=== PATIENT | female | born 1970 | race Asian ===

== ENCOUNTER 2023-12-15 07:00 | Outpatient (CLI) | payer OTHER ==
--- NOTE | 2023-12-15 14:10 | XRAY Report ---
PROCEDURE: Thoracic Spine 2V INDICATIONS: LEFT FOOT PAIN/THORACIC AND LOW BACK PAIN TECHNIQUE: 2 views of the thoracic spine were acquired. COMPARISON: None. FINDINGS: Bones: No fractures or dislocations. No suspicious bony lesions. Mild degenerative disc disease at T2-T3, T3-T4, T4-T5, T5-T6, T6-T7 and T7-T8. 12 pairs of ribs are noted with rudimentary ribs at T12, and appear intact where visualized. Soft tissues: No paravertebral stripe thickening. IMPRESSION: 1. No acute bony abnormality. 2. . Mild degenerative disc disease. Reviewed by: Hernandez Daniel MD on 12/15/2023 2:08 PM PDT Approved by: Hernandez Daniel MD on 12/15/2023 2:08 PM PDT Station ID: [id number]
--- NOTE | 2023-12-15 14:21 | XRAY Report ---
PROCEDURE: Lumbar Spine 2-3V INDICATIONS: LEFT FOOT PAIN/THORACIC AND LOW BACK PAIN TECHNIQUE: 3 views of the lumbar spine were acquired. COMPARISON: None. FINDINGS: Bones: 4 [id number] vertebrae are present. L5 is sacralized. There is normal bony alignment. No vertebral body compression fractures. No suspicious bony lesions. Mild degenerative disc disease throughout the lumbar spine. Moderate facet arthropathy in the lumbar spine. Soft tissues: Overlying bowel gas pattern is normal. No suspicious soft tissue calcifications. IMPRESSION: 1. Transitional anatomy with sacralization of L5. Please confirm vertebral levels prior to any interv entional procedures or surgery. 2. Mild degenerative disc disease and moderate facet arthropathy. Reviewed by: Hernandez Daniel MD on 12/15/2023 2:19 PM PDT Approved by: Hernandez Daniel MD on 12/15/2023 2:19 PM PDT Station ID: [id number]
--- NOTE | 2023-12-15 14:46 | XRAY Report ---
PROCEDURE: Foot 3+V LT INDICATIONS: LEFT FOOT PAIN/THORACIC AND LOW BACK PAIN TECHNIQUE: 3 views of the foot were acquired. COMPARISON: None. FINDINGS: Bones: No fractures or dislocations. No suspicious bony lesions. There are osteoarthritic changes, most confluent at the first metatarsophalangeal joint. Subtle periarticular bony erosion at the firs t metatarsophalangeal joint. Soft tissues: No tibiotalar joint effusion. Achilles tendon appears normal. 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 There is periarticular bony erosion. Reviewed by: Hernandez Daniel MD on 12/15/2023 2:45 PM PDT Approved by: Hernandez Daniel MD on 12/15/2023 2:45 PM PDT Station ID: [id number]
== END 2023-12-15 23:59 | disposition home or self-care (01) ==
LOC: DI.S 07:00
PROVIDERS: ATTEND Registered Nurse
DX: M19.072 Primary osteoarthritis, left ankle and foot (principal); M51.36 Other intervertebral disc degeneration, lumbar region; M47.816 Spondylosis without myelopathy or radiculopathy, lumbar region; M51.34 Other intervertebral disc degeneration, thoracic region

== ENCOUNTER 2024-02-20 09:36 | Emergency (ER) | payer OTHER ==
--- NOTE | 2024-02-20 11:44 | ED Physician Documentation ---
History of Present Illness - Stated complaint Stated Complaint: SOA,BACK PX - Chief complaint Chief Complaint: Back Pain - History obtained from History obtained from: Patient - Additonal information Additional information: 53-year-old female presents by private vehicle from home for back pain and shortness of breath that began abruptly shortly prior to arrival. Patient states that she was at home and lifted her arms over her head. After that she felt a severe bandlike pain from her bra line to her front. No medications taken at home for symptoms prior to arrival. Patient states that when she leans forward she feels better, but when she leans back the pain returns and she feels short of breath. Patient states that she has had ongoing muscle pains and has previously seen her primary doctor for this complaint, however she states that her doctor prescribed her "antidepressant medications", and she does not feel mentally that she needs antidepressant medications and stopped taking it. Review of Systems Constitutional: denies: Fever, Chills Cardiac: reports: Chest pain / pressure. denies: Palpitations Respiratory: reports: Dyspnea. denies: Cough : denies: Dysuria, Frequency, Hesitancy Musculoskeletal: reports: Back pain. denies: Neck pain, Extremity pain, Joint pain, Extremity swelling, Joint swelling Neurologic: denies: Generalized weakness, Focal weakness, Numbness PD PAST MEDICAL HISTORY - Past Medical History Past Medical History: Yes Cardiovascular: High cholesterol, Other Respiratory: None Neuro: None Endocrine/Autoimmune: None GI: Chronic constipation GRANULAR OPERATOR: Fibroids, Other : Frequency, Other HEENT: None Psych: None Musculoskeletal: Other Derm: None - Past Surgical History Past Surgical History: Yes General: Appendectomy /GRANULAR OPERATOR: section - Present Medications Home Medications: Ambulatory Orders Medication Instructions Recorded Confirmed No Known Home Medications 02/20/24 02/20/24 - Allergies Allergies/Adverse Reactions: Allergies Allergy/AdvReac Type Severity Reaction Status Date / Time No Known Drug Allergies Allergy Verified 02/20/24 09:54 - Social History Does the pt smoke?: No Smoking Status: Never smoker Does the pt drink ETOH?: Yes Does the pt have substance abuse?: Yes Substance Use and Type: CBD oil / Products - Immunizations Immunizations are current?: Yes - POLST Patient has POLST: No PD ED PE NORMAL - Vitals Vital signs reviewed: Yes - General General: Alert and oriented X 3, No acute distress, Well developed/nourished - Neck Neck: Supple, no meningeal sign - Cardiac Cardiac: RRR, Strong equal pulses - Respiratory Respiratory: No respiratory distress, Clear bilaterally - Back Back: No CVA TTP, No spinal TTP - Derm Derm: Normal color, Warm and dry, No rash - Neuro Neuro: Alert and oriented X 3, 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, No motor deficit, Normal speech - Psych Psych: Normal mood, Normal affect Results - Vitals Vitals: Vital Signs - 24 hr 02/20/24 02/20/24 02/20/24 09:56 12:02 13:52 Temperature 36.4 C L Heart Rate 64 76 62 Respiratory 16 16 12 Rate Blood Pressure 130/83 H 124/82 H 123/48 L O2 Saturation 100 100 98 Oxygen O2 Source Room air - Labs Labs: Laboratory Tests 02/20/24 02/20/24 02/20/24 11:51 11:51 11:51 WBC 7.4 RBC 4.64 Hgb 13.8 Hct 41.2 MCV 88.8 MCH 29.7 MCHC 33.5 RDW 13.5 Plt Count 356 MPV 8.5 Neut # (Auto) 4.3 Lymph # (Auto) 2.2 [place] # (Auto) 0.7 Eos # (Auto) 0.1 Baso # (Auto) 0.1 Absolute Nucleated RBC 0.00 Nucleated RBC % 0.0 D-Dimer Sodium 136 Potassium 3.8 Chloride 103 Carbon Dioxide 30 Anion Gap 3.0 L BUN 9 Creatinine 0.8 Estimated GFR (MDRD) 76 L Glucose 91 Calcium 9.4 Total Bilirubin 0.5 AST 15 ALT 10 Alkaline Phosphatase 54 Troponin I High Sens < 2.3 L Total Protein 6.9 Albumin 4.2 Globulin 2.7 Albumin/Globulin Ratio 1.6 02/20/24 11:58 WBC RBC Hgb Hct MCV MCH MCHC RDW Plt Count MPV Neut # (Auto) Lymph # (Auto) [place] # (Auto) Eos # (Auto) Baso # (Auto) Absolute Nucleated RBC Nucleated RBC % D-Dimer < 200.0 L Sodium Potassium Chloride Carbon Dioxide Anion Gap BUN Creatinine Estimated GFR (MDRD) Glucose Calcium Total Bilirubin AST ALT Alkaline Phosphatase Troponin I High Sens Total Protein Albumin Globulin Albumin/Globulin Ratio PD Medical Decision Making - ED course Complexity details: reviewed results, re-evaluated patient, considered differential, d/w patient ED course: Back pain and shortness of breath that is positional in nature. Physical exam is unremarkable, pain is not able to be reproduced on palpation. Patient reports concerned that there may be a misalignment in her spine or a nerve pinched, however this is not obviously seen on exam. Laboratory work and imaging is unremarkable. D-dimer negative, troponin negative. Chest x-ray negative for acute process. Patient informed of lab and imaging findings. No obvious cause of symptoms but no indication for hospitalization at this time. Patient counseled to attempt Tylenol and ibuprofen at home, encouraged continued follow-up with primary care 2 to the bottom of patient's longstanding muscle pains. Departure - Departure Disposition: Home, Self Care Clinical Impression: Back pain Condition: Stable Instructions: ED Spasm Back No Trauma Comments: Your laboratory work and x-ray imaging today was normal. There is no evidence of heart strain or blood clots. I do not know the exact cause of your symptoms. Please continue to talk with your primary doctor about possible causes of the muscle pains that you have been having. Discharge Date/Time: 02/20/24 13:53
--- NOTE | 2024-02-20 11:55 | XRAY Report ---
PROCEDURE: Chest 2V INDICATIONS: back/chest pain TECHNIQUE: 2 views of the chest were acquired. COMPARISON: None. FINDINGS: Surgical changes and devices: None. Lungs and pleura: No pleural effusions or pneumothorax. Lungs are clear. Mediastinum: Mediastinal contours appear normal. Heart size is normal. Bones and chest wall: No suspicious bony lesions. Overlying soft tissues appear unremarkable. IMPRESSION: No acute cardiopulmonary process. Reviewed by: Kike Pinedo MD on 02/20/2024 11:53 AM PDT Approved by: Kike Pinedo MD on 02/20/2024 11:53 AM PDT Station ID: [id number]
[2024-02-20 12:00] LABS: BASOPHILS # (AUTO) 0.1 10^3/uL (0.0-0.1); BASOPHILS % (AUTO) 0.8 %; EOSINOPHILS # (AUTO) 0.1 10^3/uL (0.0-0.7); EOSINOPHILS % (AUTO) 1.2 %; HCT - HEMATOCRIT 41.2 % (37.0-47.0); HGB - HEMOGLOBIN 13.8 g/dL (12.0-16.0); LYMPHOCYTES # (AUTO) 2.2 10^3/uL (1.5-3.5); LYMPHOCYTES % (AUTO) 29.5 %; MEAN CORPUSCULAR HEMOGLOBIN 29.7 pg (27.0-31.0); MEAN CORPUSCULAR HGB CONC 33.5 g/dL (32.0-36.0); MEAN CORPUSCULAR VOLUME 88.8 fL (81.0-99.0); MEAN PLATELET VOLUME 8.5 fL (7.9-10.8); MONOCYTES # (AUTO) 0.7 10^3/uL (0.0-1.0); MONOCYTES % (AUTO) 9.4 %; NEUTROPHILS # (AUTO) 4.3 10^3/uL (1.5-6.6); NEUTROPHILS % (AUTO) 58.8 %; PLT - PLATELET COUNT 356 10^3/uL (130-450); RED BLOOD COUNT 4.64 10^6/uL (4.20-5.40); RED CELL DISTRIBUTION WIDTH 13.5 % (12.0-15.0); WHITE BLOOD COUNT 7.4 x10^3/uL (4.8-10.8)
[2024-02-20] MEDS: KETOROLAC 15 MG/ML VIAL IVP STA (12:11)
[2024-02-20 12:12] LABS: ALBUMIN 4.2 g/dL (3.2-5.5); ALBUMIN/GLOBULIN RATIO 1.6 (1.0-2.2); BILIRUBIN,TOTAL 0.5 mg/dL (0.2-1.0); CALCIUM 9.4 mg/dL (8.5-10.3); CREATININE 0.8 mg/dL (0.6-1.3); POTASSIUM 3.8 mmol/L (3.5-4.5); TOTAL PROTEIN 6.9 g/dL (6.4-8.9)
[2024-02-20 13:56] VITALS: BP 123/48; O2SAT 98
== END 2024-02-20 13:53 | disposition home or self-care (01) ==
LOC: ED 09:36
DX: M54.9 Dorsalgia, unspecified (principal); R06.00 Dyspnea, unspecified; R07.9 Chest pain, unspecified
CPT/HCPCS: 36415; 80053; 84484; 85025; 85379; 96374; 99283